=== PATIENT | male | born 1965 | race Caucasian/White ===

== ENCOUNTER 2016-08-25 10:16 | Emergency (ER) | payer MEDICAID ==
[~2016-08-25] VITALS: Wt 90.0 kg
[~2016-08-25 10:16] MED LIST: TYLENOL PRN
--- NOTE | 2016-08-25 12:43 | ERD ---
ER Documentation Chief Complaint Date/Time DATE: 08/25/16 TIME: 12:15 Chief Complaint cough congestion and headache with intermittent fever for 5 days HPI 51 y/o male presents to ED for productive cough, congestion, facial pain for more than 5 days. He states that he felt like he had a fever 2 days ago but he never took his temperature at home. Took Robitussin with mild relief. Denies headache, that is the worst headache of his life, loss of consciousness, dizziness, blurry vision, changes in vision, photophobia, ear pain, throat pain , difficulty swallowing, neck pain, shoulder pain, chest pain, hemoptysis, abdominal pain, back pain, loss of appetite, nausea, vomiting, hematochezia, diarrhea, constipation, urinary symptoms, bladder and bowel incontinences, extremity weakness, extremity tenderness, numbness or tingling sensation, difficulty walking, recent travel, recent exposure to illness, recent antibiotic use in the last 3 months, chills. Allergy: NKA PMH: Hypertension, high cholesterol Medications: Unable to remember the name of his medications. Surgery: Denies Family history: Denies Primary Social History:"I tylor." Occasionally smokes cigarettes. Occasionally drinks alcoholic beverages. Denies use of illegal drugs. ROS All systems reviewed and are negative except as per history of present illness. Medications Home Meds Reported Medications [Tylenol Prn] No Conflict Check 02/23/10 Allergies Allergies: Coded Allergies: No Known Drug Allergies (Verified Allergy, Mild, 08/25/16) PMhx/Soc History of Surgery: No Anesthesia Reaction: No Hx Neurological Disorder: No Hx Respiratory Disorders: No Hx Cardiac Disorders: No Hx Psychiatric Problems: No Hx Miscellaneous Medical Probl: No Hx Alcohol Use: Yes Hx Substance Use: No Hx Tobacco Use: Yes Smoking Status: Current some day smoker FmHx Denies Family History: coronary disease, diabetes, other Physical Exam Vitals Vital Signs Date Time Temp Pulse Resp B/P Pulse Ox O2 Delivery O2 Flow Rate FiO2 08/25/16 10:28 97.6 73 20 123/70 98 Physical Exam CONSTITUTIONAL: Well-appearing; well-nourished; in no apparent distress. HEAD: Normocephalic; atraumatic. EYES: Conjunctiva clear, sclera non-icteric, EOM intact. PERRL Ears: Hearing intact. EACs clear, TMs non-bulging, non-inflamed, translucent & mobile, ossicles normal appearance, No obstructions, no erythema, no discharges Nose: No obstructions. No polyps. No external lesions. Congestion. No external lesions, septum and turbinates normal. No rhinorrhea. No discharges. Frontal sinus is tender to palpation. Maxillary sinus is tender to palpation. MOUTH: Moist mucous membranes, no lesion, no obstructions, no vesicles, no thrush, patent airway Throat: Uvula in midline. Right tonsil is +2 with mild erythema, no exudate. Left tonsil is +2 with mild erythema, no exudate. Tolerating secretions well. Good gag reflex. Patent airway. Neck: Supple, without lesions, bruits, or adenopathy. No mass. Thyroid non- enlarged and non-tender to palpation. CHEST: Symmetrical chest. Respirations even and not labored. No retractions noted. CARDIOVASCULAR: Normal S1, S2. RRR. No murmurs, gallops. RESPIRATORY: Normal chest excursion with respiration; breath sounds clear and equal bilaterally; no wheezes, rhonchi, or rales. Breathing even and unlabored. Speaking in clear, full, and complete sentences w/ ease. ABDOMEN: Normal bowel sounds normal. Soft, round, non-distended, non-guarding, no tenderness, no rebound, no organomegaly, no masses, no pulsating abdominal mass. No hernia. No peritoneal signs. : No CVA tenderness. BACK: Symmetrical shoulder. Spine is midline without deformity, tenderness. No evidence of trauma or deformity. PELVIS: Stable pelvis. No evidence of trauma or deformity. MUSCULOSKELETAL: Normal gait and station. No misalignment, asymmetry, crepitation, defects, tenderness, masses, effusions, decreased range of motion, instability, atrophy or abnormal strength or tone in the head, neck, spine, ribs , pelvis or extremities. No calf tenderness. NEUROVASCULAR: Distal pulses are present. Pedal pulse are present, equal, and normal. Capillary refills are < 2 seconds. NEUROLOGIC: Alert and oriented x4. Speaks full and clear sentences. Cranial Nerves II-XII normal. Sensation to pain, touch, and proprioception normal. Grossly unremarkable. No neurologic deficits. PSYCHOLOGICAL: The patients mood and manner are appropriate. No hallucinations , delusions. Not SI. Not HI. Has the capacity to decide for self SKIN: Normal for age and ethnicity; warm; dry; good turgor; no apparent lesions or exudates. No rashes, hives, discoloration. Intact. Procedures/MDM Examination: Unremarkable examination except nasal congestion, frontal and maxillary sinus tenderness on palpation, bilateral tonsils are +2 with mild erythema with no exudates Disease process, medical treatment was explained to the patient and family member. They verbalized understanding and agreed with the medical treatment, and follow-up care. Re-evaluation: Consultation: Differential diagnosis: Pneumonia versus bronchitis versus upper respiratory infection versus sinusitis versus tonsillitis versus strep pharyngitis Medical decision makin51 y/o male presents to ED for productive cough, congestion, facial pain for more than 5 days.He states that he felt like he had a fever 2 days ago but he never took his temperature at home. No suspicion for pneumonia, bronchitis, upper respiratory infection, tonsillitis, strep pharyngitis. Final diagnosis of acute clinical sinusitis. Medications prescribed are the following: Augmentin, Robitussin Patient and family member are made aware of the side effects and adverse reactions of the medications prescribed. Instructed on when to seek emergent and medical attention in case allergic/anaphylactic reactions or severe side effects and or adverse reactions to medications. Patient and family member verbalized understanding. Patient instructed Instructed to follow-up with his PCP in 24-48 hours. Instructed to Call 911 for chest pain, shortness of breath. Advised to come back here in ED as soon as possible for severity of symptoms which includes but not limited to: any new symptoms; shortness of breath/difficulty of breathing; cardiovascular changes; severe gastrointestinal symptoms; signs and symptoms of bleeding and or infection; signs of compartment syndrome/neurovascular changes; neurological changes/deficits. Patient and family member verbalized understanding. Upon discharge, patient is alert and oriented x 4, speaks full and clear sentences, denies pain, has no neurological deficits, has no neurovascular deficits, difficulty of breathing. Breathing even and unlabored. Lung sounds are clear to auscultation. Not in distress. Appears comfortable. Ambulatory with steady gait. Appears satisfied with care provided here in ED. Departure Condition: Good Additional Instructions: Patient instructed Instructed to follow-up with his PCP in 24-48 hours. Instructed to Call 911 for chest pain, shortness of breath. Advised to come back here in ED as soon as possible for severity of symptoms which includes but not limited to: any new symptoms; shortness of breath/difficulty of breathing; cardiovascular changes; severe gastrointestinal symptoms; signs and symptoms of bleeding and or infection; signs of compartment syndrome/neurovascular changes; neurological changes/deficits. Patient and family member verbalized understanding. OLIVERIO ZELAYA Aug 25, 2016 12:36
[2016-08-25] MEDS ORDERED: AMOX1TAB10 PO (12:44)
[2016-08-25] MEDS ORDERED: GUAI-637 PO (12:45)
== END 2016-08-25 12:55 | disposition home or self-care (01) ==
LOC: FTE 10:16
DX: J01.90 Acute sinusitis, unspecified (principal); F17.210 Nicotine dependence, cigarettes, uncomplicated; I10 Essential (primary) hypertension
CPT/HCPCS: 99283

== ENCOUNTER 2017-03-08 22:12 | Emergency (ER) | payer MEDICAID, OTHER ==
[~2017-03-08] VITALS: Wt 92.5 kg
[~2017-03-08 22:12] MED LIST changes: +AMOX1TAB10 PO; +GUAI-637 PO
[2017-03-08] MEDS ORDERED: IBUP-1542 PO (23:50)
[2017-03-09] MEDS ORDERED: DIPHTH/TET/ACEL PERTUSS (ADULT) 0.5 ML VIAL IM* ONE
[2017-03-09 00:24] VITALS: BP 132/78; PULSE 83; RESP 20; TEMP 98
--- NOTE | 2017-03-09 04:42 | ERD ---
ER Documentation Chief Complaint Date/Time DATE: 03/09/17 TIME: 04:34 Chief Complaint Laceration on the right inner thigh HPI 51-year-old male complaining of laceration on his right thigh. Patient stated that he was using a box strapper at work, when the knife slipped and cut his right thigh. He works as a heart well service floorperson. This happened about 7 hours ago. He clean the wound in the shower, and applied butterfly bandage to close the wound. He did not remember when his last tetanus update was. Denies any other injuries. ROS All systems reviewed and are negative except as per history of present illness. Medications Home Meds Active Scripts Ibuprofen* (Motrin*) 600 Mg Tab, 600 MG PO Q6H Y for PAIN AND OR ELEVATED TEMP, #30 TAB Prov:DEDRA LIVINGSTON ETHNOGRAPHER 03/08/17 Guaifenesin* (Robitussin*) 100 Mg/5 Ml Syrup, 100 MG PO Q4H Y for COUGH for 7 Days, ML Prov:OLIVERIO ZELAYA 08/25/16 Amoxicillin/Potassium Clav (Amox-Clav 875-125 mg Tablet) 875-125 mg Tab, 1 TAB PO BID for 7 Days, #14 TAB Prov:OLIVERIO ZELAYA F 08/25/16 Reported Medications [Tylenol Prn] No Conflict Check 02/23/10 Allergies Allergies: Coded Allergies: No Known Drug Allergies (Verified Allergy, Mild, 08/25/16) PMhx/Soc History of Surgery: No Anesthesia Reaction: No Hx Neurological Disorder: No Hx Respiratory Disorders: No Hx Cardiac Disorders: No Hx Psychiatric Problems: No Hx Miscellaneous Medical Probl: No Hx Alcohol Use: Yes Hx Substance Use: No Hx Tobacco Use: Yes Smoking Status: Current every day smoker Physical Exam Vitals Vital Signs Date Time Temp Pulse Resp B/P Pulse Ox O2 Delivery O2 Flow Rate FiO2 03/09/17 00:24 98.0 83 20 132/78 100 Room Air 03/08/17 22:27 97.5 83 20 139/78 100 Physical Exam General: Well-developed, well-nourished, conscious and coherent, in no distress Skin: Warm and dry without rash, good texture and turgor. After approximately 1 cm long laceration is closed with 3 butterfly bandages with good wound approximation. No active bleeding or wound drainage. Head: Normocephalic without evidence of trauma Eyes: Sclera and conjunctivae normal; pupils equal, round, and reactive to light; extraocular movements are intact Chest: Normal AP diameter. Good expansion without retractions. Nontender. Lungs are clear to auscultate bilaterally with good tidal volume Heart: Regular rate and rhythm. No murmur, rub, or gallops heard Extremities: Full range of motion. Good strength bilaterally. No clubbing, cyanosis, or edema. Peripheral pulses are intact. Sensation intact Neuro: Alert and oriented 4, GCS 15. Cranial nerves grossly intact. Motor and sensory exams nonfocal. Moves all extremities. Speech clear. Gait normal Results 24 hrs Current Medications Medications (Trade) Dose Ordered Sig/Denise Route PRN Reason Start Time Stop Time Status Last Admin Dose Admin Diphtheria/ Tetanus/Acell Pertussis (Adacel) 0.5 ml ONCE ONCE IM* 03/09/17 00:00 03/09/17 00:01 DC 03/08/17 23:58 Procedures/MDM Well-appearing 51-year-old male present ED with laceration to his right thigh. Patient had close the wound with butterfly bandages with good wound approximation. I do not feel suturing is necessary given with good wound approximation with a butterfly bandages. I advised him to keep the peripheral light bandage in place for at least 7-10 days, keep the wound clean and dry, and change the outer dressing daily. Patient is given Tdap update and ED. Patient advised to return to ED if he notices any increased pain, erythema, swelling, or drainage from the wound site. Patient appears well, stable for discharge and outpatient management. Medical decision making shared with patient and family. Education provided to patient and family. Patient and family expressed understanding of the plan. Medications on discharge: Ibuprofen. Follow-up: Primary care provider in 2-3 days or return to ED if worse. Disclaimer: Inadvertent spelling and grammatical errors are likely due to EHR/ dictation software use and do not reflect on the overall quality of patient care. Also, please note that the electronic time recorded on this note does not necessarily reflect the actual time of the patient encounter. Departure Diagnosis: Primary Impression: Laceration Condition: Good Patient Instructions: Laceration, All Referrals: DOCTOR,NOT ON [facility] ([facility]) Usted se mata hecho un examen mdico de control que le indica que no est en [place] condicin que requiera tratamiento urgente en el Departamento de Emergencia. Un estudio ms profundo y el tratamiento de joel condicin pueden esperar sin ningn riesgo hasta que usted sea atendida/o en el consultorio de joel mdico o [place] cl joana. Es responsabilidad suya arreglar d[place] hero para el seguimiento del peg. MANEJO DE CONDICIONES NO URGENTES EN EL FUTURO 1) Si usted tiene un mdico de atencin primaria: Usted debera llamar a joel mdico de atencin primaria antes de venir al departamento de emergencia. Despus de las horas de consultorio, joel doctor o joel asociado/a est disponible por telfono. El mdico o enfermero de griffin en el servicio telefnico puede asesorarle por nataliia medio para atender el problema, o peg contrario se puede programar d[place]ota hero. 2) Si usted no tiene un mdico de atencin primaria: Llame al mdico o clnica de referencia que aparece abajo marty las horas de consultorio para hacer [place] hero para que le vean. CLINICAS: [facility] [id number] [facility] [phone] [facility] [phone] [facility] [facility] [phone] [place] [id number] [phone] [facility] [address] [address] [phone] [address] Additional Instructions: Llame al doctor MAANA y mela dakota HERO PARA DENTRO DE 2-3 INMAN.Dgale a la secretaria que nosotros le instruimos hacer esta hero.Avise o llame si joel condicin se empeora antes de la ehro. Regresa aqui si peor o no mejor. Return to emergency if the wound becomes red, swollen, much more painful, or has pus draining out. DEDRA LIVINGSTON. AUDRA Mar 09, 2017 04:41
== END 2017-03-09 00:24 | disposition home or self-care (01) ==
LOC: FTE 22:12
DX: S71.111A Laceration without foreign body, right thigh, initial encounter (principal); F17.210 Nicotine dependence, cigarettes, uncomplicated; W26.8XXA Contact with other sharp object(s), not elsewhere classified, initial encounter; Y92.9 Unspecified place or not applicable; Z23 Encounter for immunization
CPT/HCPCS: 90471; 90715

== ENCOUNTER 2018-06-07 11:56 | Emergency (ER) | END 2018-06-07 17:34 | disposition home or self-care (01) ==